=== PATIENT | male | born 1965 | race Caucasian/White ===

== ENCOUNTER 2019-03-22 17:30 | Outpatient (CLI) | payer OTHER, SELFPAY ==
--- NOTE | 2019-03-22 17:41 | MR_ITS ---
WS: [id number] MRI CERVICAL SPINE NONCONTRAST TECHNIQUE: Sagittal T1, T2 and STIR imaging. Axial T2, gradient, and fiesta imaging. CLINICAL INFORMATION: MUSCLE SPASM, CERVICAL RADICULOPATHY COMPARISON: None. FINDINGS: Straightening of the normal cervical lordosis. Disc bulging worse at C5-C6 with broad-based central d isc protrusion with subligamentous extension. Indentation on cervical cord with mild to moderate cent ral canal stenosis. Cord signal is normal. C2-C3: Normal. C3-C4: Disc osteophyte complex with endplate ridging. Mild right and no significant left foraminal na rrowing. Mild central canal stenosis. C4-C5: Mild disc bulging with osteophytic ridging. Mild right and no significant left foraminal narro wing. Mild facet arthropathy. C5-C6: Broad-based central disc protrusion with mild to moderate central canal stenosis and slight co ntact of the cervical cord. Mild left and no significant right foraminal narrowing. Disc material jennifer sures 3.5 mm in maximum AP dimension. Mild left and no significant right foraminal narrowing. C6-C7: Disc osteophyte complex with endplate ridging. Mild central canal stenosis. Mild to moderate l eft and no significant right foraminal narrowing. Slight indentation on the ventral cervical cord. C7-T1: Mild left and no significant right foraminal narrowing. Spinal canal is patent. Visualized upper thoracic cord is normal. Partially visualized T2 hyperintense lesion left parotid gland measuring 14 mm may represent intraper itoneal lymph node versus parotid adenoma. This can be further evaluated with neck CT. MR/MR cervical spin wo con* [id number] IMPRESSION: 1. Straightening of the normal cervical lordosis. 2. Prominent central disc protrusion C5-C6 with subligamentous extension of di sc material. This results in mild to moderate central canal stenosis with sligh t indentation on the cervical cord. Cord signal remains normal. 3. Disc osteophyte complex C3-C4 eccentric to the right with mild central chantel l stenosis. 4. Shallow disc osteophyte complex eccentric to the left C6-C7 with mild centr al canal stenosis. Mild to moderate left foraminal narrowing at this level. 5. Otherwise mild foraminal narrowing more prominent at right C3-C4, left C5-C 6, and left C7-T1. 6. Partially visualized T2 hyperintense lesion left parotid gland measuring 14 mm may represent intraperitoneal lymph node versus parotid adenoma. This can b e further evaluated with neck CT.
== END 2019-03-22 17:31 | disposition home or self-care (01) ==
LOC: RADSHAW 17:37
PROVIDERS: Family Provider Family Medicine; PCP Family Medicine; Visit Provider Family Medicine
DX: M62.838 Other muscle spasm (principal); M54.12 Radiculopathy, cervical region; M50.222 Other cervical disc displacement at C5-C6 level; M48.02 Spinal stenosis, cervical region
CPT/HCPCS: 72141

== ENCOUNTER → 2021-10-02 14:59 | Outpatient (BNVA) | payer OTHER, SELFPAY | PROVIDERS: Family Provider Family Medicine; PCP Family Medicine; Visit Provider Clinical Nurse Specialist Adult Health | DX: R19.5 Other fecal abnormalities (principal); R11.0 Nausea | CPT/HCPCS: 80053; 85025 ==

== ENCOUNTER → 2024-11-30 08:35 | Outpatient (BNVA) | payer OTHER, SELFPAY | PROVIDERS: Family Provider Family Medicine; PCP Family Medicine; Visit Provider Family Medicine | DX: R03.0 Elevated blood-pressure reading, without diagnosis of hypertension (principal); L30.9 Dermatitis, unspecified | CPT/HCPCS: 80053; 80061; 83036 ==